=== PATIENT | male | born 1945 | race Two or more races ===

== ENCOUNTER 2017-11-16 14:57 | Emergency (ER) | payer OTHER ==
[~2017-11-16] VITALS: Ht 172.7 cm; Wt 81.6 kg
[2017-11-16] MEDS ORDERED: METFORMIN HCL500 MG (15:14)
[2017-11-16] MEDS ORDERED: LOSARTAN-HCTZ1 EAC1 (15:14)
[2017-11-16] MEDS ORDERED: LIPITOR20 MG (15:14)
== END 2017-11-16 19:24 | disposition home or self-care (01) ==
LOC: ER 14:57 → CPU-OBS 15:46 → ER 15:46
DX: R07.89 Other chest pain (principal)

== ENCOUNTER 2020-07-08 08:28 | Emergency (ER) | payer OTHER ==
[~2020-07-08] VITALS: Ht 172.7 cm; Wt 81.6 kg
[~2020-07-08 08:28] MED LIST: LIPITOR20 MG; LOSARTAN-HCTZ1 EAC1; METFORMIN HCL500 MG
[2020-07-08] MEDS ORDERED: IRBESARTAN-HCT1 EACH PO (09:09)
[2020-07-08] MEDS ORDERED: NORFLEX100MG PO (11:58)
[2020-07-08] MEDS ORDERED: KETO10TA2 PO (11:58)
== END 2020-07-08 12:25 | disposition home or self-care (01) ==
LOC: ER 08:28
DX: R07.89 Other chest pain (principal); Z20.828 Contact with and (suspected) exposure to other viral communicable diseases

== ENCOUNTER 2021-10-06 12:57 | Outpatient (CLI) | payer OTHER ==
[~2021-10-06 12:57] MED LIST changes: +IRBESARTAN-HCT1 EACH PO; +KETO10TA2 PO; +NORFLEX100MG PO
== END 2021-10-06 13:10 | disposition home or self-care (01) ==
LOC: SONOGRAMA 12:57
PROVIDERS: ATTEND Specialist
DX: R22.1 Localized swelling, mass and lump, neck (principal)

== ENCOUNTER 2021-11-30 06:20 | Day surgery (SDC) | payer OTHER ==
[~2021-11-30 06:20] MED LIST changes: +COZAAR50 MG PO; +LIPITOR20 MG PO
== END 2021-11-30 14:50 | disposition home or self-care (01) ==
LOC: CIR.AMB 06:20
PROVIDERS: ATTEND Specialist
DX: D17.0 Benign lipomatous neoplasm of skin and subcutaneous tissue of head, face and neck (principal)